=== PATIENT | male | born 1955 ===

== ENCOUNTER 2018-09-24 00:03 | Inpatient (IN) ==
[2018-09-24] MEDS ORDERED: ASPIRIN 325 MG TABLET PO STA (00:17)
[2018-09-24] MEDS ORDERED: TICAGRELOR 90 MG TABLET PO STA (00:17)
[2018-09-24] MEDS ORDERED: ONDANSETRON 4 MG/2 ML VIAL IV STA (00:17)
[2018-09-24] MEDS ORDERED: HEPARIN 5,000 UNIT/1 ML VIAL IV ONE (00:17)
[2018-09-24] MEDS ORDERED: NITROGLYCERIN 2% OINT 1 INCH/GM PACK TOP STA (00:17)
[2018-09-24] MEDS ORDERED: MORPHINE 4 MG/1 ML VIAL IV STA (00:17)
[2018-09-24] MEDS ORDERED: ONDANSETRON 4 MG/2 ML VIAL ONE (00:20)
[2018-09-24] MEDS ORDERED: MORPHINE 4 MG/1 ML VIAL ONE (00:21)
[2018-09-24 00:23] LABS: Basophils % 0.3 % (0.0-0.8); Eosinophils # 0.1 10*3/uL (0.0-0.87); Eosinophils % 1.3 % (0.00-10.9); Hematocrit 50.9 VOL% (42.0-52.0); Hemoglobin 15.7 GM/DL (14.0-18.0); Immature Granulocytes % 0.5 %; Immature Granulocytes Absolute 0.05 #; Lymphocytes # 1.6 10*3/uL (1.4-4.0); Lymphocytes % 17.5 % (21.2-54.2); Mean Corpuscular HGB Conc 30.8 GM/DL (32-36); Mean Corpuscular Volume 88.5 FL (87-102); Mean Platelet Volume 8.8 FL (9.6-12.0); Monocytes % 5.5 % (1.7-12.7); Neutrophils % 74.9 % (38.7-73.9); Platelet Count 194 T/CUMM (130-400); Red Blood Count 5.75 MC/CUMM (3.8-5.5); White Blood Count 9.3 T/CUMM (4-12)
[2018-09-24 00:32] LABS: INR 0.9; PT Patient Result 9.8 SECS; Partial Thromboplastin Time 24.9 SECS (0-40)
[2018-09-24] MEDS ORDERED: MIDAZOLAM 2 MG/2 ML VIAL ONE ×2 (00:40→01:05)
[2018-09-24] MEDS ORDERED: LIDOCAINE 1% 20 ML VIAL ONE (00:40)
[2018-09-24] MEDS ORDERED: HEPARIN/NACL 0.9% 2 UNITS/ML 1,000 ML IV ONE (00:40)
[2018-09-24] MEDS ORDERED: fentaNYL 100 MCG/2 ML VIAL ONE (00:40)
[2018-09-24 00:45] LABS: Bilirubin,Total 0.5 MG/DL (0.2-1.0); CKMB % 4.5 %; Calcium 9.7 MG/DL (8.5-10.1); Osmolality,Calculated 283.3 MOS/KG (273-304); Total Protein 8.6 G/DL (6.4-8.3)
[2018-09-24 00:46] LABS: Troponin I 0.601 NG/ML (0.00-0.045)
[2018-09-24] MEDS ORDERED: VERAPAMIL 5 MG/2 ML VIAL ONE (00:49)
[2018-09-24] MEDS ORDERED: NITROGLYCERIN DRIP 50 MG/250 ML BOTTLE IV ONE (00:49)
[2018-09-24] MEDS ORDERED: HEPARIN 5,000 UNIT/1 ML VIAL ONE (01:02)
[2018-09-24] MEDS ORDERED: ATROPINE 1 MG/10 ML SYRINGE ONE (01:02)
[2018-09-24] MEDS ORDERED: NITROPRUSSIDE 50 MG/2 ML VIAL ONE (01:09)
[2018-09-24] MEDS ORDERED: NITROGLYCERIN SL 0.4 MG TABLET SL PRN (01:26)
[2018-09-24] MEDS ORDERED: ZALEPLON 5 MG CAPSULE PO PRN (01:26)
[2018-09-24] MEDS ORDERED: ACETAMINOPHEN 325 MG TABLET PO PRN (01:26)
[2018-09-24] MEDS ORDERED: SODIUM CHLORIDE 0.9% 1,000 ML IV SCH (01:30)
[2018-09-24 04:59] LABS: Calcium 8.8 MG/DL (8.5-10.1); Osmolality,Calculated 287.8 MOS/KG (273-304)
[2018-09-24] MEDS: CARVEDILOL 3.125 MG TABLET PO SCH ×2 (09:05→21:05)
[2018-09-24] MEDS: PANTOPRAZOLE 40 MG TABLET PO SCH (09:05)
[2018-09-24] MEDS: ASPIRIN EC 81 MG TABLET PO SCH (09:05)
[2018-09-24] MEDS: TICAGRELOR 90 MG TABLET PO SCH ×2 (09:05→21:05)
[2018-09-24 10:22] LABS: Apearance,Urine CLEAR (Clear); Bilirubin,Urine Negative (Negative); Blood, Urine Negative (Negative); Glucose,Urine (UA) Negative (Negative); Ketones,Urine Negative (Negative); Nitrite,Urine Negative (Negative); Protein,Urine Negative; RBC,Urine 1 /HPF (0-4); Urine Color Yellow (Yellow); Urine Specific Gravity 1.046 (1.001-1.035); Urine Urobilinogen < 2.0 EU/DL (0.2-1.0); WBC,Urine <1 /HPF (0-6)
[2018-09-24 10:36] LABS: Barbiturates Screen,Urine Negative (Negative); Benzodiazepines Screen,Urine Positive (Negative); Cannabinoid Screen,Urine Negative (Negative); Opiate Screen,Urine Positive (Negative); Phencyclidine Screen,Urine Negative (Negative)
[2018-09-24] MEDS: ALLOPURINOL 300 MG TABLET PO SCH (11:13)
[2018-09-24] MEDS: ATORVASTATIN 80 MG TABLET PO SCH (21:05)
[2018-09-25 04:35] LABS: Basophils % 0.3 % (0.0-0.8); Eosinophils # 0.1 10*3/uL (0.0-0.87); Hematocrit 39.4 VOL% (42.0-52.0); Hemoglobin 12.3 GM/DL (14.0-18.0); Immature Granulocytes % 0.4 %; Immature Granulocytes Absolute 0.03 #; Lymphocytes # 1.8 10*3/uL (1.4-4.0); Lymphocytes % 26.2 % (21.2-54.2); Mean Corpuscular HGB Conc 31.2 GM/DL (32-36); Mean Corpuscular Volume 88.9 FL (87-102); Mean Platelet Volume 9.7 FL (9.6-12.0); Monocytes % 8.3 % (1.7-12.7); Neutrophils % 62.8 % (38.7-73.9); Platelet Count 157 T/CUMM (130-400); Red Blood Count 4.43 MC/CUMM (3.8-5.5)
[2018-09-25 04:57] LABS: Calcium 8.5 MG/DL (8.5-10.1)
[2018-09-25] MEDS: ASPIRIN EC 81 MG TABLET PO SCH (08:22)
[2018-09-25] MEDS: TICAGRELOR 90 MG TABLET PO SCH ×2 (08:22→20:42)
[2018-09-25] MEDS: ALLOPURINOL 300 MG TABLET PO SCH (08:22)
[2018-09-25] MEDS: CARVEDILOL 3.125 MG TABLET PO SCH ×2 (08:23→20:42)
[2018-09-25] MEDS: PANTOPRAZOLE 40 MG TABLET PO SCH (08:23)
[2018-09-25] MEDS: ATORVASTATIN 80 MG TABLET PO SCH (20:42)
[2018-09-26 03:41] LABS: Basophils % 0.3 % (0.0-0.8); Eosinophils # 0.2 10*3/uL (0.0-0.87); Eosinophils % 2.3 % (0.00-10.9); Hematocrit 40.9 VOL% (42.0-52.0); Immature Granulocytes % 0.3 %; Immature Granulocytes Absolute 0.02 #; Lymphocytes # 1.8 10*3/uL (1.4-4.0); Lymphocytes % 22.7 % (21.2-54.2); Mean Corpuscular HGB Conc 31.8 GM/DL (32-36); Mean Platelet Volume 9.6 FL (9.6-12.0); Neutrophils % 65.4 % (38.7-73.9); Platelet Count 163 T/CUMM (130-400); Red Blood Count 4.65 MC/CUMM (3.8-5.5); Red Cell Distribution Width 14.1 % (9.3-17.3); White Blood Count 7.8 T/CUMM (4-12)
[2018-09-26 03:58] LABS: Calcium 8.9 MG/DL (8.5-10.1); Osmolality,Calculated 285.1 MOS/KG (273-304)
[2018-09-26 07:58] VITALS: BP 115/72
[2018-09-26] MEDS: ASPIRIN EC 81 MG TABLET PO SCH (08:59)
[2018-09-26] MEDS: ALLOPURINOL 300 MG TABLET PO SCH (08:59)
[2018-09-26] MEDS: CARVEDILOL 3.125 MG TABLET PO SCH (09:00)
[2018-09-26] MEDS: PANTOPRAZOLE 40 MG TABLET PO SCH (09:00)
[2018-09-26] MEDS: TICAGRELOR 90 MG TABLET PO SCH (09:00)
== END 2018-09-26 11:15 | disposition home or self-care (01) | DRG 246 ==
LOC: N.ED 00:03 → N.CL 00:30 → N.CVR 00:39 → N.CC 07:19 → N.TELES 09:46
PROVIDERS: ADMIT Internal Medicine Cardiovascular Disease; ATTEND Internal Medicine Cardiovascular Disease
PROC: CLCCHCL (ICD-10-PCS; 2018-09-24 01:00)